=== PATIENT | male | born 1950 | race Caucasian/White ===

== ENCOUNTER 2016-11-07 11:12 | Observation (INO) | payer MEDICARE, OTHER ==
[2016-10-31 14:22] LABS: HEMATOCRIT 46.6 % (40.0-51.0); HEMOGLOBIN 16.1 g/dL (13.6-17.8)
[2016-10-31 14:29] LABS: ASCORBIC ACID (UR NOT ORDER) NEG (NEG); BILIRUBIN, URINE NEGATIVE (NEG); KETONE, URINE NEGATIVE (NEG); LEUKOCYTE ESTERASE(NOT OR SMALL (NEG); WBC (NOT ORDERED) (RFLEX) 3 (0-5)
--- NOTE | ~2016-11-07 | OP ---
Record Of Operation [facility] [address] [facility] [facility] [place] [address] NAME: NANCY REYNA : 50 STATUS : DIS Michelle PAT#: [id number] AGE: 66 ADM/REG DATE : 11/07/16 MR#: [id number] REPORT SERV DATE: 11/11/16 DICTATED BY: DIAMOND COREA DATE: 11/11/16 REPORT STATUS : Draft TRANSCRIBED BY: MODL DATE: 11/11/16 DATE OF PROCEDURE: 11/07/2016 SURGEON: Diamond Corea MD TITLE OF OPERATIONS: 1. Cystolitholapaxy. 2. Transurethral resection of prostate. PREOPERATIVE DIAGNOSES: 1. Benign prostatic hypertrophy with obstruction. 2. Bladder stone. POSTOPERATIVE DIAGNOSES: 1. Benign prostatic hypertrophy with obstruction. 2. Bladder stone. INDICATIONS: Mr. Reyna is a 66-year-old male with symptomatic BPH with obstruction. He has an enlarged prostate and a bladder stone. He is here for treatment of his bladder stones and his prostate which is the root cause of his problems. ANESTHESIA: General. COMPLICATIONS: None. IMPLANT: 24-Fijian 3-way Claros catheter. SPECIMEN: 1. Prostatic chips for analysis. 2. Bladder stones for chemical analysis. NARRATIVE: The patient was brought to the operating room. Identified by his wristband. General anesthesia was induced. Ancef was given for preoperative antibiotics. He was placed in dorsal lithotomy position, prepped and draped in sterile fashion. A 26-Fijian resectoscope was placed into his urethra into his bladder with the aid of an obturator. Bladder was inspected. It was trabeculated. There is a large 3 cm stone in his bladder. Using a laser bridge, it was fragmented into innumerable small pieces with a 1000 micron holmium laser fiber. The pieces were removed from the bladder with an Clowdy evacuator and sent to the Pathology for chemical analysis. Next, the laser bridge was changed out for a working resectoscope. The prostate was resected from the base to the junction of transitional and peripheral zones. The was then resected laterally on . Hemostasis was obtained with cautery. The chips were evacuated from the bladder. There was no ongoing bleeding. The prostatic fossa was widely patent. The scope was removed. A 24-Fijian 3-way Claros catheter was placed. 40 mL were placed in the wound. Traction was applied. Continuous bladder irrigation was initiated. The patient was then awoken from anesthesia and transferred to the recovery room in stable Record Of Operation [address] [id number] NAME: NANCY REYNA : 50 STATUS : DIS Michelle PAT#: [id number] AGE: 66 ADM/REG DATE : 11/07/16 MR#: [id number] REPORT SERV DATE: 11/11/16 DICTATED BY: DIAMOND COREA DATE: 11/11/16 REPORT STATUS : Draft TRANSCRIBED BY: KEESHA DATE: 11/11/16 condition and no complications. Urine was clear upon leaving the operating room. MEAGHAN/KEESHA Diamond Corea MD / [id number] CC: MD Alber Vaz III, D.O.
[~2016-11-07 11:12] MED LIST: CIALIS2.5 MG PO; DSS PO; HALF81 PO; MELATONIN5 M1 PO; NORCO1 TA1 PO; SENTAB PO; ZANTAC150 MG PO
[2016-11-07 14:54] LABS: HEMATOCRIT 47.7 % (40.0-51.0); HEMOGLOBIN 16.4 g/dL (13.6-17.8)
[2016-11-08 06:36] LABS: HEMATOCRIT 45.8 % (40.0-51.0); HEMOGLOBIN 15.2 g/dL (13.6-17.8)
[2016-11-08] MEDS ORDERED: DSS PO (09:24)
[2016-11-08] MEDS ORDERED: PCET PO (09:26)
[2016-11-08] MEDS ORDERED: LEVAQUIN750 MG PO (09:27)
[2016-11-14 10:32] LABS: STONE COMPOSITION TWO DNR (())
== END 2016-11-08 10:52 | disposition home or self-care (01) ==
LOC: SDC 11:12 → 4SO 19:25
PROVIDERS: Urology
PROC: 0TCB8ZZ Extirpation of Matter from Bladder, Via Natural or Artificial Opening Endoscopic (ICD-10-PCS; principal; 2016-11-07 12:45)
PROC: 0VT08ZZ Resection of Prostate, Via Natural or Artificial Opening Endoscopic (ICD-10-PCS; 2016-11-07 12:45)
DX: N40.1 Benign prostatic hyperplasia with lower urinary tract symptoms (principal); N13.8 Other obstructive and reflux uropathy; N21.0 Calculus in bladder; Z88.7 Allergy status to serum and vaccine; M19.90 Unspecified osteoarthritis, unspecified site
CPT/HCPCS: 36415; 81001; 82365; 84295; 85014; 85018; 86850; 86900; 86901; 87086; 88305; 93005; 96374; 96376; A9270-GY; G0378; J0690; J2250; J2405; J2710; J3010